=== PATIENT | female | born 1965 | race Caucasian/White ===

== ENCOUNTER 2016-12-07 16:36 | Observation (INO) | payer OTHER ==
[~2016-12-07] VITALS: Ht 154.9 cm; Wt 102.0 kg
[~2016-12-07 16:36] MED LIST: FURO40TA OR; LIQUID IRON PO; [UNRECOGNIZED DRUG - CODE] IV
[2016-12-07 16:45] VITALS: BP 125/58; PULSE 70; RESP 20; O2SAT 99
[2016-12-07] MEDS ORDERED: HYDROmorphone HCL PF 1 MG/ML VIAL IV PUSH ONE ×2 (17:00→20:00)
--- NOTE | 2016-12-07 17:10 | PD ---
HPI Chief Complaint: Fall Time Seen by Provider: 16:52 Travel History International Travel<30 days: No Contact w/Intl Traveler<30days: No Traveled to known affect area: No History of Present Illness HPI 51 year old female presents to ED after slip & fall onto left knee. Patient reports she slipped on wet concrete falling forward onto left knee & left out stretched hand. She denies Head injury. No LOC. Patient is not anticoagulated. She complains of L knee pain, unable to bear weight. Left lateral hand pain. Left anterior rib pain. Denies CP, SOB, Headache, N/V, or visual changes. Patient denies any PMH. No current Home medications. 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) Endocrine: No GERD: No Genitourinary: Yes Hiatal Hernia: Yes Immune Disorder: No Implanted Vascular Access Dvce: Yes (RIGHT SUBCLAVIAN) Kidney Stones: Yes Musculoskeletal: No Neurologic: No Psychiatric: Yes Respiratory: No Immunizations Current: No Renal Failure: No Ulcer: No ?: Not Past Surgical History Abdominal Surgery: Yes (APPENDECTOMY,EXP LAP,UMBILICAL HERNIA REPAIR) Arteriovenous Shunt: No Cardiac Surgery: No Insulin Pump: No Joint Replacement: No Pacemaker: No Thoracic Surgery: No Other Surgery: Yes Social History Alcohol Use: No Tobacco Use: No Substance Use: No Allergies-Medications (Allergen,Severity, Reaction): Coded Allergies: No Known Allergies (Verified , 12/07/16) Reported Meds & Prescriptions Reported Meds & Active Scripts Active Walker with Front Wheels (Device) 1 Mis Mis 1 Ea .ROUTE DIRECTED Hydrocodone-Acetaminophen 5-325 mg Tab 1 Tab PO Q4H PRN Ibuprofen 600 Mg Tab 600 Mg PO Q8HR PRN Review of Systems Except as stated in HPI: all other systems reviewed are Neg Physical Exam Narrative GENERAL: Alert obese white female. Crying out in pain. Exam limited due to patients pain level. SKIN: Warm and dry. HEAD: Normocephalic. atraumatic. EYES: No scleral icterus. No injection or drainage. NECK: Supple, trachea midline. No JVD or lymphadenopathy. CARDIOVASCULAR: Regular rate and rhythm without murmurs, gallops, or rubs. RESPIRATORY: Breath sounds equal bilaterally. No accessory muscle use. Mild tenderness left anterior rib. No crepitus. GASTROINTESTINAL: Abdomen soft, non-tender, nondistended. MUSCULOSKELETAL: Left knee swollen, mildly ecchymotic, No cyanosis. Pulses present. Normal sensation of the Left lower extremity. Left hand tender over 5th metacarpal. BACK: Nontender without obvious deformity. No CVA tenderness. Data Data Last Documented VS Vital Signs Date Time Temp Pulse Resp B/P Pulse Ox O2 Delivery O2 Flow Rate FiO2 12/07/16 22:00 88 18 141/78 12/07/16 18:28 100 12/07/16 17:26 Room Air Orders Chest, Single Ap (12/07/16 ) Hand, Limited (2vws) (12/07/16 ) Knee, Complete (4vws) (12/07/16 ) Hydromorphone Pf Inj (Dilaudid Pf Inj) (12/07/16 17:00) Hydromorphone Pf Inj (Dilaudid Pf Inj) (12/07/16 17:15) Hydromorphone Pf Inj (Dilaudid Pf Inj) (12/07/16 20:00) Ct Knee W/O Contrast (12/07/16 ) Cta Runoff W Iv Contrast W 3d (12/07/16 ) Complete Blood Count With Diff (12/07/16 21:04) Comprehensive Metabolic Panel (12/07/16 21:04) ^ Insert Iv (12/07/16 21:04) Prothrombin Time / Inr (Pt) (12/07/16 21:04) Act Partial Throm Time (Ptt) (12/07/16 21:04) Iohexol 350 Inj (Omnipaque 350 Inj) (12/07/16 21:28) Splint Or Brace Apply/Monitor (12/08/16 00:02) Crutches (12/08/16 00:02) Admit Order (Ed Use Only) (12/08/16 01:10) Labs Laboratory Tests Test 12/07/16 21:20 White Blood Count 10.1 TH/MM3 Red Blood Count 4.41 MIL/MM3 Hemoglobin 11.5 GM/DL Hematocrit 36.0 % Mean Corpuscular Volume 81.5 FL Mean Corpuscular Hemoglobin 26.0 PG Mean Corpuscular Hemoglobin 31.9 % Concent Red Cell Distribution Width 14.8 % Platelet Count 156 TH/MM3 Mean Platelet Volume 8.7 FL Neutrophils (%) (Auto) 88.2 % Lymphocytes (%) (Auto) 7.0 % Monocytes (%) (Auto) 4.2 % Eosinophils (%) (Auto) 0.3 % Basophils (%) (Auto) 0.3 % Neutrophils # (Auto) 8.9 TH/MM3 Lymphocytes # (Auto) 0.7 TH/MM3 Monocytes # (Auto) 0.4 TH/MM3 Eosinophils # (Auto) 0.0 TH/MM3 Basophils # (Auto) 0.0 TH/MM3 CBC Comment DIFF FINAL Differential Comment Prothrombin Time 10.8 SEC Prothromb Time International 1.0 RATIO Ratio Activated Partial 24.5 SEC Thromboplast Time Sodium Level 139 MEQ/L Potassium Level 4.0 MEQ/L Chloride Level 106 MEQ/L Carbon Dioxide Level 26.1 MEQ/L Anion Gap 7 MEQ/L Blood Urea Nitrogen 11 MG/DL Creatinine 0.72 MG/DL Estimat Glomerular Filtration 85 ML/MIN Rate Random Glucose 113 MG/DL Calcium Level 7.5 MG/DL Total Bilirubin 0.5 MG/DL Aspartate Amino Transf 56 U/L (AST/SGOT) Alanine Aminotransferase 48 U/L (ALT/SGPT) Alkaline Phosphatase 60 U/L Total Protein 5.0 GM/DL Albumin 2.4 GM/DL [facility] Medical Decision Making Medical Screen Exam Complete: Yes Emergency Medical Condition: Yes Medical Record Reviewed: Yes Differential Diagnosis Patellar fx vs patellar dislocation vs contusion vs hand fx, vs rib fx Narrative Course 51 year old female who sustained a fall from a standing position. No head Trauma. Left knee is concerning for FX. Possible rib FX. Possible hand FX. Xray of knee, hand, chest pending. Physician Communication Physician Communication CT/CTA of left lower extremity paending. Leslie Del Angel NP will follow patient at this time. Scripts Walker with Front Wheels 1 Mis Mis #1 EA .ROUTE DIRECTED Ref 0 Prov:Diana Esparza PA-C 12/08/16 Hydrocodone-Acetaminophen 5-325 mg Tab1 Tab PO Q4H PRN (PAIN SCALE 3 TO 5) #18 TAB Prov:Barrie Hook MD 12/08/16 Ibuprofen 600 Mg [id number] Mg PO Q8HR PRN (PAIN) #30 TAB Ref 0 Prov:Leslie Del Angel 12/08/16 Mirela Pritchard December 07, 2016 17:10 Mirela Pritchard [facility] December 07, 2016 17:10
[2016-12-07] MEDS ORDERED: HYDROmorphone HCL PF 1 MG/ML VIAL IM ONE (17:15)
[2016-12-07 18:28] VITALS: BP 176/78; PULSE 98; RESP 18; O2SAT 100
--- NOTE | 2016-12-07 20:27 | RADRPT ---
EXAM DATE/TIME: 12/07/2016 17:46 [facility] COMPARISON: No previous studies available for comparison. INDICATIONS : Pain from fall on porch. MEDICAL HISTORY : None. SURGICAL HISTORY : None. ENCOUNTER: Initial ACUITY: 1 day PAIN SCORE: 10/10 LOCATION: Left knee. FINDINGS: Diffuse osteopenia of the bones of the left knee is noted. There is moderate joint space narrowing i nvolving the medial femoral tibial joint as well as marginal osteophytosis. Moderate joint space susan rowing is also noted involving the patellofemoral joint with marginal osteophytosis superiorly. No a cute fracture or dislocation is noted. CONCLUSION: 1. Diffuse osteopenia of the bones of the left knee. 2. Moderate joint space narrowing and marginal osteophytosis involving the patellofemoral and medial femoral tibial joints. 3. No acute fracture or dislocation. Abraham Doll MD on December 07, 2016 at 20:17 Board Certified Radiologist. This report was verified electronically.
--- NOTE | 2016-12-07 20:28 | RADRPT ---
EXAM DATE/TIME: 12/07/2016 17:53 [facility] COMPARISON: No previous studies available for comparison. INDICATIONS : Pain from fall on porch. MEDICAL HISTORY : None. SURGICAL HISTORY : None. ENCOUNTER: Initial ACUITY: 1 day PAIN SCORE: 3/10 LOCATION: Left hand. FINDINGS: Diffuse osteopenia of the left hand, wrist and distal forearm is noted. There is no acute fracture o r dislocation of the left hand or wrist. CONCLUSION: 1. No acute fracture or dislocation. 2. Diffuse osteopenia involving the left hand, wrist and distal forearm. Abraham Doll MD on December 07, 2016 at 20:19 Board Certified Radiologist. This report was verified electronically.
--- NOTE | 2016-12-07 20:30 | RADRPT ---
EXAM DATE/TIME: 12/07/2016 17:59 [facility] COMPARISON: No previous studies available for comparison. INDICATIONS : Pain from fall off porch. MEDICAL HISTORY : None. SURGICAL HISTORY : None. ENCOUNTER: Initial ACUITY: 1 day PAIN SCORE: 3/10 LOCATION: Bilateral chest FINDINGS: A right internal jugular central line has its tip in the superior vena cava near the junction with th e right atrium. There is no pneumothorax. The heart and mediastinal structures are normal. The pul monary vascular pattern is normal. The lungs are clear. Arthritic changes are noted involving both shoulders. CONCLUSION: No acute cardiopulmonary disease. Abraham Doll MD on December 07, 2016 at 20:20 Board Certified Radiologist. This report was verified electronically.
--- NOTE | 2016-12-07 21:25 | PD ---
Data Data Last Documented VS Vital Signs Date Time Temp Pulse Resp B/P Pulse Ox O2 Delivery O2 Flow Rate FiO2 12/07/16 18:29 18 12/07/16 18:28 98 176/78 100 12/07/16 17:26 Room Air Orders Chest, Single Ap (12/07/16 ) Hand, Limited (2vws) (12/07/16 ) Knee, Complete (4vws) (12/07/16 ) Hydromorphone Pf Inj (Dilaudid Pf Inj) (12/07/16 17:00) Hydromorphone Pf Inj (Dilaudid Pf Inj) (12/07/16 17:15) Hydromorphone Pf Inj (Dilaudid Pf Inj) (12/07/16 20:00) Ct Knee W/O Contrast (12/07/16 ) Cta Runoff W Iv Contrast W 3d (12/07/16 ) Complete Blood Count With Diff (12/07/16 21:04) Comprehensive Metabolic Panel (12/07/16 21:04) ^ Insert Iv (12/07/16 21:04) Prothrombin Time / Inr (Pt) (12/07/16 21:04) Act Partial Throm Time (Ptt) (12/07/16 21:04) MDM Supervised Visit with JOSELIN: Yes Narrative Course The history, exam, and medical decision-making in the associated midlevel provider note were completed with my assistance. I reviewed and agree with the findings presented. I attest that I had a [id number] encounter with the patient on the same day, and personally performed and documented my assessment and findings in the medical record. *My assessment and Findings: This is a 51-year-old female who presents to the emergency department having had a fall onto her left knee. She is reporting severe pain in the left knee. Her exam is impressive with an effusion and ecchymoses over the left knee with severe pain with range of motion. Her exam is somewhat disproportionate to her mechanism of injury but she is obese. X- rays were reassuring but we will perform a CT and a CTA to rule out vascular injury. Hanna Cervantes MD December 07, 2016 21:25
[2016-12-07] MEDS ORDERED: IOHEXOL 350 MG/ML 10 ML VIAL (for RAD DIAG) IV ONE (21:28)
--- NOTE | 2016-12-07 21:33 | RADRPT ---
EXAM DATE/TIME: 12/07/2016 20:54 [facility] COMPARISON: No previous studies available for comparison. INDICATIONS : Trauma, fall. Left knee pain. RADIATION DOSE: 47.11 CTDIvol (mGy) MEDICAL HISTORY : Renal calculi. Hernia. SURGICAL HISTORY : Appendectomy. Cholecystectomy. ENCOUNTER: Initial ACUITY: 1 day PAIN SCALE: 10/10 LOCATION: Left knee TECHNIQUE: Volumetric scanning of the knee was performed. Using automated exposure control and adjustment of th e mA and/or kV according to patient size, radiation dose was kept as low as reasonably achievable to obtain optimal diagnostic quality images. FINDINGS: Severe osteoporosis is noted involving the bones of the left knee. There is no acute fracture or dis location. No knee joint effusion is noted. Moderate osteoarthritis is noted involving the patellofe moral and femoral tibial joints. CONCLUSION: 1. Severe osteoporosis involving the bones of the left knee. 2. Moderate osteoarthritis involving the patellofemoral and femoral tibial joints. 3. No acute fracture, dislocation or knee joint effusion. Abraham Doll MD on December 07, 2016 at 21:27 Board Certified Radiologist. This report was verified electronically.
[2016-12-07 21:38] LABS: AUTOMATED NEUTROPHIL # 8.9 TH/MM3 (1.8-7.7); BASOPHIL % 0.3 % (0.0-2.0); EOSINOPHIL % 0.3 % (0.0-4.0); HEMO FLAGS DIFF FINAL; LYMPHOCYTE # 0.7 TH/MM3 (1.0-4.8); MEAN CELL VOLUME 81.5 FL (80.0-100.0); MEAN CORPUSCULAR HGB CONC 31.9 % (32.0-36.0); MONO % 4.2 % (0.0-8.0); NEUT % 88.2 % (16.0-70.0); PLATELET COUNT 156 TH/MM3 (150-450); RED BLOOD COUNT 4.41 MIL/MM3 (4.00-5.30); RED CELL DISTRIBUTION WIDTH 14.8 % (11.6-17.2); WHITE BLOOD COUNT 10.1 TH/MM3 (4.0-11.0)
[2016-12-07 21:51] LABS: APTT (PATIENT) 24.5 SEC (24.3-30.1); PROTHROMBIN TIME - PATIENT 10.8 SEC (9.8-11.6)
[2016-12-07 21:56] LABS: ALKALINE PHOSPHATASE 60 U/L (45-117); TOTAL BILIRUBIN ADULT 0.5 MG/DL (0.2-1.0)
[2016-12-07 22:00] VITALS: BP 141/78; PULSE 88; RESP 18
[2016-12-07 22:17] LABS: ALT (GPT) 48 U/L (10-53); ANION GAP 7 MEQ/L (5-15); AST (GOT) 56 U/L (15-37); BICARBONATE 26.1 MEQ/L (21.0-32.0); BLOOD UREA NITROGEN 11 MG/DL (7-18); CHLORIDE 106 MEQ/L (98-107); GLOMERULAR FILTRATION RATE 85 ML/MIN (>89); SODIUM (NA) 139 MEQ/L (136-145)
--- NOTE | 2016-12-07 23:56 | RADRPT ---
EXAM DATE/TIME: 12/07/2016 21:08 [facility] COMPARISON: CT KNEE LEFT W/O CONTRAST, December 07, 2016, 20:54. INDICATIONS : Left knee injury. Evaluate for arterial occulsion. IV CONTRAST: 95 cc Omnipaque 350 (iohexol) IV RADIATION DOSE: 33.53 CTDIvol (mGy) MEDICAL HISTORY : Renal calculi. Hernia. SURGICAL HISTORY : Appendectomy. Cholecystectomy. ENCOUNTER: Initial ACUITY: 1 day PAIN SCALE: 10/10 LOCATION: Left knee TECHNIQUE: Volumetric scanning was performed using a multi-row detector CT scanner. The data was post processed with a variety of visualization algorithms including full volume maximum intensity projection, multi -planar sliding thin slab reformation, curved planar reformation, and surface rendering techniques. Using automated exposure control and adjustment of the mA and/or kV according to patient size, radiat ion dose was kept as low as reasonably achievable to obtain optimal diagnostic quality images. FINDINGS: ABDOMINAL AORTA: The lumen is smooth without significant narrowing or aneurysmal dilation. The proximal celiac and dillon perior mesenteric arteries are patent. There is some questionable narrowing at the origin of the amari ac artery. There is no evidence of narrowing involving the SMA.. There are bilateral renal arteries without gross abnormality. There appears to be a single right renal artery. There appear to be 3 left renal arteries which are patent. There is a 1.4 cm nonobstructing stone in the lower pole left kidne y. The left kidney is mildly atrophic compared to the right. BIFURCATION: Normal. RIGHT PELVIS: The right common iliac, internal iliac, and external iliac vessels are patent without luminal irregul arity. LEFT PELVIS: The left common iliac, internal iliac, and external iliac vessels are patent and without luminal irre gularity. RIGHT THIGH: The superficial femoral and profunda vessels are patent without luminal irregularity. LEFT THIGH: The superficial femoral and profunda vessels are patent without luminal irregularity. RIGHT KNEE: The distal femoral and popliteal arteries are patent without luminal irregularity. LEFT KNEE: The distal femoral and popliteal arteries are patent without luminal irregularity. RIGHT LEG: The trifurcation is intact. LEFT LEG: The trifurcation is intact. There is a 2.6 cm left ovarian cyst. Evidence of previous abdominal surgery with a mesh graft against the anterior abdominal wall. 1.4 cm nonobstructing left renal stone. Diffuse soft tissue density in the subcutaneous soft tissues anterior to the left knee suggestive of a prominent subcutaneous hematoma given patient's recent history of trauma CONCLUSION: 1. The arterial system is within normal limits for patient's age. Specifically there is no evidence o f any abnormality involving the left popliteal artery. 2. Prominent soft tissue hematoma involving the subcutaneous soft tissues anterior to the left knee j oint. 3. 1.4 cm not affecting left renal stone. 4. 2.6 cm left ovarian cyst. Fernando Guy MD on December 07, 2016 at 23:44 Board Certified Radiologist. This report was verified electronically.
[2016-12-08] MEDS ORDERED: HYDR-3533 PO (00:04)
[2016-12-08] MEDS ORDERED: IBUP-232 PO (00:32)
--- NOTE | 2016-12-08 00:32 | PD ---
Physical Exam Time Seen by Provider: 00:29 Narrative Patient is signed out to me with CTA pending of the left lower extremity. Please refer to previous providers documentation for details surrounding the patient's current visit. Data Data Last Documented VS Vital Signs Date Time Temp Pulse Resp B/P Pulse Ox O2 Delivery O2 Flow Rate FiO2 12/07/16 22:00 88 18 141/78 12/07/16 18:28 100 12/07/16 17:26 Room Air Orders Chest, Single Ap (12/07/16 ) Hand, Limited (2vws) (12/07/16 ) Knee, Complete (4vws) (12/07/16 ) Hydromorphone Pf Inj (Dilaudid Pf Inj) (12/07/16 17:00) Hydromorphone Pf Inj (Dilaudid Pf Inj) (12/07/16 17:15) Hydromorphone Pf Inj (Dilaudid Pf Inj) (12/07/16 20:00) Ct Knee W/O Contrast (12/07/16 ) Cta Runoff W Iv Contrast W 3d (12/07/16 ) Complete Blood Count With Diff (12/07/16 21:04) Comprehensive Metabolic Panel (12/07/16 21:04) ^ Insert Iv (12/07/16 21:04) Prothrombin Time / Inr (Pt) (12/07/16 21:04) Act Partial Throm Time (Ptt) (12/07/16 21:04) Iohexol 350 Inj (Omnipaque 350 Inj) (12/07/16 21:28) Splint Or Brace Apply/Monitor (12/08/16 00:02) Crutches (12/08/16 00:02) Admit Order (Ed Use Only) (12/08/16 01:10) Labs Laboratory Tests Test 12/07/16 21:20 White Blood Count 10.1 TH/MM3 Red Blood Count 4.41 MIL/MM3 Hemoglobin 11.5 GM/DL Hematocrit 36.0 % Mean Corpuscular Volume 81.5 FL Mean Corpuscular Hemoglobin 26.0 PG Mean Corpuscular Hemoglobin 31.9 % Concent Red Cell Distribution Width 14.8 % Platelet Count 156 TH/MM3 Mean Platelet Volume 8.7 FL Neutrophils (%) (Auto) 88.2 % Lymphocytes (%) (Auto) 7.0 % Monocytes (%) (Auto) 4.2 % Eosinophils (%) (Auto) 0.3 % Basophils (%) (Auto) 0.3 % Neutrophils # (Auto) 8.9 TH/MM3 Lymphocytes # (Auto) 0.7 TH/MM3 Monocytes # (Auto) 0.4 TH/MM3 Eosinophils # (Auto) 0.0 TH/MM3 Basophils # (Auto) 0.0 TH/MM3 CBC Comment DIFF FINAL Differential Comment Prothrombin Time 10.8 SEC Prothromb Time International 1.0 RATIO Ratio Activated Partial 24.5 SEC Thromboplast Time Sodium Level 139 MEQ/L Potassium Level 4.0 MEQ/L Chloride Level 106 MEQ/L Carbon Dioxide Level 26.1 MEQ/L Anion Gap 7 MEQ/L Blood Urea Nitrogen 11 MG/DL Creatinine 0.72 MG/DL Estimat Glomerular Filtration 85 ML/MIN Rate Random Glucose 113 MG/DL Calcium Level 7.5 MG/DL Total Bilirubin 0.5 MG/DL Aspartate Amino Transf 56 U/L (AST/SGOT) Alanine Aminotransferase 48 U/L (ALT/SGPT) Alkaline Phosphatase 60 U/L Total Protein 5.0 GM/DL Albumin 2.4 GM/DL [facility] Medical Record Reviewed: Yes Supervised Visit with JOSELIN: No Narrative Course CTA results prominent subcutaneous hematoma of the left knee. It also shows that vascular system is intact. I discussed the results of the patient. She is placed in a cam his knee immobilizer. We have attempted to ambulate her using crutches however the patient is unable to do this. She states that she is extremely weak in her upper extremities and she will not be of the utilize the crutches at home. She does have an autistic son at home who is 16 and she is concerned may not be able to help her either. She does have a sister who lives in [place] but is fearful she will be at home alone and unable to ambulate. I have discussed the patient with case management. We have obtained a walker. We attempted to walk the patient utilizing the walker however the patient was unable to do this. She was very tearful and frustrated with the entire situation. I discussed the patient with Dr. Lopez. Patient will be admitted observation for inability to ambulate and further evaluation of this and possible need for additional assistance. Diagnosis Primary Impression: Traumatic hematoma of left knee Qualified Code: S80.02XA - Traumatic hematoma of left knee, initial encounter Referrals: Orthopaedic Surgeon Primary Care Physician Patient Instructions: General Instructions, Hematoma (ED) Additional Instruction: Knee immobilizer for comfort Ice and elevate to reduce pain and swelling Follow-up with an fundraising specialist Return immediately with any acute worsening of symptoms Med/Other Pt SpecificInfo: Prescription(s) given Scripts Ibuprofen 600 Mg [id number] Mg PO Q8HR PRN (PAIN) #30 TAB Ref 0 Prov:Leslie Del Angel 12/08/16 Hydrocodone-Acetaminophen (Lortab)5-325 Mg Tab1 Tab PO Q6H PRN (PAIN GREATER THAN 5) #15 TAB Ref 0 Prov:Summer Bowens MD 12/08/16 Disposition: 01 DISCHARGE HOME Condition: Stable Leslie Del Angel December 08, 2016 00:32
[2016-12-08] MEDS ORDERED: BISACODYL 10 MG SUPP RECTAL PRN (03:00)
[2016-12-08] MEDS ORDERED: ONDANSETRON HCL 4 MG/2 ML VIAL IVP PRN (03:00)
[2016-12-08] MEDS ORDERED: ACETAMINOPHEN 325 MG TAB PO PRN (03:00)
[2016-12-08] MEDS ORDERED: SODIUM CHLORIDE 0.9% FLUSH 10 ML FLUSH IV FLUSH PRN (03:00)
[2016-12-08] MEDS ORDERED: MORPHINE SULFATE 4 MG/ML INJ IV PRN (03:00)
--- NOTE | 2016-12-08 03:14 | HHI.HP ---
[facility] Admission Diagnosis L Knee hematoma; inability to ambulate Diagnoses: (1) Traumatic hematoma of left knee (2) Inability to ambulate due to knee Diagnosis: Principal (3) Gait instability Diagnosis: Principal (4) Dehydration Diagnosis: Principal (5) HTN (hypertension) Diagnosis: Principal Travel History International Travel<30 Days: No Contact w/Intl Traveler <30 Da: No Traveled to Known Affected Are: No History of Present Illness This is a 51-year-old female with a PMH of Anxiety who presented to the ER with complaints of left knee pain after a slip and fall. Patient apparently slipped on wet concrete and fell onto left knee and left hand. No LOC or head injury reported. Patient unable to bare weight without significant pain. On arrival, BP 125/58, HR 70, O2 sat 99% on RA, Afebrile. CBC unremarkable. Chemistry essentially unremarkable. On exam, pt found to have large left knee hematoma. Not on anticoagulation. Knee X-ray with diffuse osteopenia of left knee, moderate joint space narrowing, no acute fracture. Hand X-ray with no acute fracture or dislocation. CXR with no acute findings. CT LE was severe osteoporosis involving left knee, moderate osteoarthritis, no acute fracture. CTA w/ Runoff, no evidence of abnormality involving left popliteal artery, prominent soft tissue hematoma involving the subcutaneous soft tissues of left knee joint. Pt was to be discharged from ER, however reports inability to ambulate. Provided w/ walker by Case Management, persistent complaints of inability to ambulate. Plan to admit for PT eval. Review of Systems Except as stated in HPI: all other systems reviewed are Neg ROS: 14 point review of systems otherwise negative. Past Family Social History Past Medical History PMH: Anxiety Past Surgical History PAST SURGICAL HISTORY: Appendectomy, Exploratory Laparotomy, Umbilical Hernia Repair Allergies: Coded Allergies: No Known Allergies (Verified , 12/07/16) Family History PAST FAMILY HISTORY: Reviewed. No h/o DM or CAD Social History PAST SOCIAL HISTORY: Negative for alcohol, tobacco or drugs. Physical Exam Vital Signs Vital Signs Date Time Temp Pulse Resp B/P Pulse Ox O2 Delivery O2 Flow Rate FiO2 12/07/16 22:00 88 18 141/78 12/07/16 18:29 18 12/07/16 18:28 98 18 176/78 100 12/07/16 17:26 Room Air 12/07/16 16:45 70 20 125/58 99 Physical Exam PE: GENERAL: Middle-aged female in no acute distress. HEENT: PERRLA, EOMI. No scleral icterus or conjunctival pallor. No lid lag or facial droop. CARDIOVASCULAR: Regular rate and rhythm. No obvious murmurs to auscultation. No chest tenderness to palpation. RESPIRATORY: No obvious rhonchi or wheezing. Clear to auscultation. Breath sounds equal bilaterally. GASTROINTESTINAL: Abdomen soft, non-tender, nondistended. BS normal. MUSCULOSKELETAL: Extremities without clubbing, cyanosis, or edema. No obvious deformities. Left knee swelling, +ecchymosis. Pulses intact. NEUROLOGICAL: Awake, alert and oriented x4. No focal neurologic deficits. Moving both upper and lower extremities spontaneously. Laboratory Laboratory Tests Test 12/07/16 21:20 White Blood Count 10.1 Red Blood Count 4.41 Hemoglobin 11.5 Hematocrit 36.0 Mean Corpuscular Volume 81.5 Mean Corpuscular Hemoglobin 26.0 Mean Corpuscular Hemoglobin 31.9 Concent Red Cell Distribution Width 14.8 Platelet Count 156 Mean Platelet Volume 8.7 Neutrophils (%) (Auto) 88.2 Lymphocytes (%) (Auto) 7.0 Monocytes (%) (Auto) 4.2 Eosinophils (%) (Auto) 0.3 Basophils (%) (Auto) 0.3 Neutrophils # (Auto) 8.9 Lymphocytes # (Auto) 0.7 Monocytes # (Auto) 0.4 Eosinophils # (Auto) 0.0 Basophils # (Auto) 0.0 CBC Comment DIFF FINAL Differential Comment Prothrombin Time 10.8 Prothromb Time International 1.0 Ratio Activated Partial 24.5 Thromboplast Time Sodium Level 139 Potassium Level 4.0 Chloride Level 106 Carbon Dioxide Level 26.1 Anion Gap 7 Blood Urea Nitrogen 11 Creatinine 0.72 Estimat Glomerular Filtration 85 Rate Random Glucose 113 Calcium Level 7.5 Total Bilirubin 0.5 Aspartate Amino Transf 56 (AST/SGOT) Alanine Aminotransferase 48 (ALT/SGPT) Alkaline Phosphatase 60 Total Protein 5.0 Albumin 2.4 Result Diagram: 12/07/16211912/07/162119 Assessment and Plan Problem List: (1) Traumatic hematoma of left knee ICD Code: S80.02XA Status: Acute (2) Inability to ambulate due to knee ICD Code: R26.2 Status: Acute (3) Gait instability ICD Code: R26.81 Status: Acute (4) HTN (hypertension) ICD Code: I10 Status: Acute (5) Dehydration ICD Code: E86.0 Status: Acute Assessment and Plan A/P: 1. Traumatic Hematoma to Left Knee: s/p slip and fall, no head trauma or LOC, Knee X-ray w/ no acute fracture, CT LE with severe osteoporosis involving left knee, no acute fracture. CTA w/ Runoff w/ no evidence of abnormality involving left popliteal artery, prominent soft tissue hematoma involving subcutaneous soft tissues left knee joint, images reviewed by me. Not on anticoagulation. 2. Inability to Ambulate: pt to be d/c'd from ER, however pt unable to ambulate due to c/o pain. Walker provided by Case Management, however persistent inability to ambulate, suspect partially related to obesity and poor effort. PT for eval/tx. Case Management to assist as needed. 3. Gait Instability: secondary to above, attempts to ambulate unsuccessful. PT as above. 4. Dehydration: GFR 85, BUN/Creatinine normal. IVF for hydration. Repeat labs in am. 5. HTN: BP 140-170's while in ER, likely compounded by pain. No h/o HTN. Monitor BP. 6. DVT Prophylaxis: Pharmacologic contraindication in light of hematoma. Mechanical contraindication in light of lower extremity injury. 7. Social work for d/c planning as needed. 8. Case discussed w/ ER physician at length. Problem Qualifiers (1) Traumatic hematoma of left knee: Qualified Code: S80.02XA - Traumatic hematoma of left knee, initial encounter Rosemary Mclaughlin MD December 08, 2016 03:14
[2016-12-08] MEDS: SODIUM CHLOR 0.9% 1000 ML INJ 1,000 ML IV SCH ×2 (04:04→12:46)
[2016-12-08 04:40] VITALS: BP 111/57; PULSE 68; RESP 20; TEMP 98.3; O2SAT 97
[2016-12-08] MEDS: ACETAMINOPHEN/HYDROcodone 325 MG/5 MG TAB PO PRN ×2 (05:56→12:45)
[2016-12-08 07:53] VITALS: BP 115/57; PULSE 60; RESP 18; TEMP 97; O2SAT 97
[2016-12-08] MEDS ORDERED: SODIUM CHLORIDE 0.9% FLUSH 10 ML FLUSH IV FLUSH SCH (09:00)
[2016-12-08 11:36] VITALS: BP 125/59; PULSE 63; RESP 18; TEMP 97; O2SAT 65
[2016-12-08 16:07] VITALS: BP 128/56; PULSE 63; RESP 18; TEMP 98.2; O2SAT 96
[2016-12-08] MEDS ORDERED: HYDR-3516 PO (16:25)
--- NOTE | 2016-12-08 16:37 | HHI.PR ---
Subjective Remarks Follow-up for left knee hematoma, inability to ambulate. The patient reports feeling better today. Her left knee pain and swelling is improving. She has been able to ambulate around her room without much difficulty. She ambulated the hallway with physical therapy. She does also complain of some medial left ankle pain with ambulation, requests an xray. Otherwise, the patient would like to go home, she does not want to stay another night in the hospital. Her pain is well controlled with Randall. Objective Vitals Vital Signs Date Time Temp Pulse Resp B/P Pulse Ox O2 Delivery O2 Flow Rate FiO2 12/08/16 16:07 98.2 63 18 128/56 96 12/08/16 11:36 97.0 63 18 125/59 65 12/08/16 07:53 97.0 60 18 115/57 97 12/08/16 04:40 98.3 68 20 111/57 97 12/07/16 22:00 88 18 141/78 12/07/16 18:29 18 12/07/16 18:28 98 18 176/78 100 12/07/16 17:26 Room Air 12/07/16 16:45 70 20 125/58 99 I/O 12/07/16 12/07/16 12/07/16 12/08/16 12/08/16 12/08/16 07:00 15:00 23:00 07:00 15:00 23:00 Intake Total 346 ml Output Total 0 ml Balance 346 ml Intake Oral 120 ml IV Total 226 ml Output Urine Total 0 ml Result Diagram: 12/07/16211912/07/162119 Imaging Last Impressions Lower Extremity CT 12/07/16 0000 Signed Impressions: Service Date/Time: Wednesday, December 07, 2016 20:54 - CONCLUSION: 1. Severe osteoporosis involving the bones of the left knee. 2. Moderate osteoarthritis involving the patellofemoral and femoral tibial joints. 3. No acute fracture, dislocation or knee joint effusion. Abraham Doll MD Knee X-Ray 12/07/16 0000 Signed Impressions: Service Date/Time: Wednesday, December 07, 2016 17:46 - CONCLUSION: 1. Diffuse osteopenia of the bones of the left knee. 2. Moderate joint space narrowing and marginal osteophytosis involving the patellofemoral and medial femoral tibial joints. 3. No acute fracture or dislocation. Abraham Doll MD Hand X-Ray 12/07/16 0000 Signed Impressions: Service Date/Time: Wednesday, December 07, 2016 17:53 - CONCLUSION: 1. No acute fracture or dislocation. 2. Diffuse osteopenia involving the left hand, wrist and distal forearm. Abraham Doll MD Chest X-Ray 12/07/16 0000 Signed Impressions: Service Date/Time: Wednesday, December 07, 2016 17:59 - CONCLUSION: No acute cardiopulmonary disease. Abraham Doll MD Aorta w/Runoff CTA 12/07/16 0000 Signed Impressions: Service Date/Time: Wednesday, December 07, 2016 21:08 - CONCLUSION: 1. The arterial system is within normal limits for patient's age. Specifically there is no evidence of any abnormality involving the left popliteal artery. 2. Prominent soft tissue hematoma involving the subcutaneous soft tissues anterior to the left knee joint. 3. 1.4 cm not affecting left renal stone. 4. 2.6 cm left ovarian cyst. Fernando Guy MD Objective Remarks GENERAL: Well-nourished, well-developed obese female patient in NAD. Ambulating her room. SKIN: Warm and dry. No rash. HEENT: Normocephalic. Atraumatic.Pupils equal and round. Mucous membranes pink and moist. NECK: Supple. Trachea midline. CARDIOVASCULAR: Regular rate and rhythm. S1, S2 noted. No murmur appreciated. RESPIRATORY: No accessory muscle use. Clear to auscultation. Breath sounds equal bilaterally. GASTROINTESTINAL: Abdomen soft, non-tender, nondistended. Normoactive bowel sounds x4. MUSCULOSKELETAL: No obvious deformities. Diffuse left anterior knee hematoma and ecchymosis with decreased ROM secondary to pain. Left ankle nontender to palpation however does have ankle pain with plantar flexion against resistance. NEUROLOGICAL: Awake and alert. No obvious cranial nerve deficits. Motor grossly within normal limits. 5/5 muscle strength in bilateral upper and lower extremities. Normal speech. PSYCHIATRIC: Appropriate mood and affect; insight and judgment normal. Procedures None. Medications and IVs Current Medications Medications (Trade) Dose Ordered Sig/Andres Route Start Time Stop Time Status Last Admin (NS Flush) 2 ml UNSCH PRN IV FLUSH 12/08/16 03:00 (NS Flush) 2 ml BID IV FLUSH 12/08/16 09:00 (Zofran Inj) 4 mg Q6H PRN IVP 12/08/16 03:00 (Dulcolax Supp) 10 mg DAILY PRN RECTAL 12/08/16 03:00 (Tylenol) 650 mg Q6H PRN PO 12/08/16 03:00 (Randall 5-325 Mg) 1 tab Q4H PRN PO 12/08/16 03:00 12/08/16 12:45 Morphine Sulfate 2 mg 2 mg Q3H PRN IV 12/08/16 03:00 (NS 1000 ml Inj) 1,000 ml @ 100 mls/hr Q10H IV 12/08/16 03:00 12/08/16 12:46 A/P Problem List: (1) Traumatic hematoma of left knee ICD Code: S80.02XA Status: Acute (2) Inability to ambulate due to knee ICD Code: R26.2 Status: Acute (3) Gait instability ICD Code: R26.81 Status: Acute (4) HTN (hypertension) ICD Code: I10 Status: Acute (5) Dehydration ICD Code: E86.0 Status: Acute Assessment and Plan 51-year-old female with a PMH of Anxiety who presented to the ER with complaints of left knee pain after a slip and fall. Patient apparently slipped on wet concrete and fell onto left knee and left hand. Patient unable to bare weight without significant pain. Traumatic Hematoma to Left Knee: s/p slip and fall, no head trauma or LOC, Knee X-ray w/ no acute fracture, CT LE with severe osteoporosis involving left knee, no acute fracture. CTA w/ Runoff w/ no evidence of abnormality involving left popliteal artery, prominent soft tissue hematoma involving subcutaneous soft tissues left knee joint, images reviewed by me. Not on anticoagulation. Continue Ice, Elevation, Knee Immobilizer. Randall prn pain. PT eval, recommends HHC or no PT, and walker. Patient's sister has a walker at home she plans to use. Patient requesting to be discharged. Inability to Ambulate: pt to be d/c'd from ER, however pt unable to ambulate due to c/o pain. Walker provided by Case Management, however persistent inability to ambulate, suspect partially related to obesity and poor effort. PT eval as above. Case Management assisting with d/c plans. Left Ankle Pain: suspect sprain secondary to fall. Check left ankle xrays. Gait Instability: secondary to above, attempts to ambulate unsuccessful. PT as above. Patient now able to ambulate independently with walker. Dehydration: GFR 85, BUN/Creatinine normal. Given IVF for hydration. HTN: BP 140-170's while in ER, likely compounded by pain. No h/o HTN. Monitor BP, much improved. DVT Prophylaxis: Pharmacologic contraindication in light of hematoma. Mechanical contraindication in light of lower extremity injury. Discharge Planning Left ankle xrays unremarkable. Will discharge home. Discussed with Dr. Hook. Discharge patient to home with [facility] Condition on discharge: Improved Regular Diet as tolerated Ad Eve activity Rx written: Randall 5/325mg q4h prn pain #18 Follow-up with primary care physician at the [facility] within 1 week Problem Qualifiers (1) Traumatic hematoma of left knee: Qualified Code: S80.02XA - Traumatic hematoma of left knee, initial encounter Diana Esparza PA-C December 08, 2016 4:37 pm
--- NOTE | 2016-12-08 16:37 | HHI.FF ---
Face to Face Verification Diagnosis: (1) Traumatic hematoma of left knee (2) Inability to ambulate due to knee (3) Gait instability (4) HTN (hypertension) (5) Dehydration Physical Therapy Order: Evaluate and Treat, Improve ambulation, Strength and gait training I have seen patient Luz Mendez on 12/08/16. My clinical findings support the need for the requested home health care services because: Ltd mobility - disease progression High risk of falls I certify that my clinical findings support that this patient is homebound because: Unsteady gait/balance Unsafe to leave home unassisted Diana Esparza PA-C December 08, 2016 4:37 pm
--- NOTE | 2016-12-08 16:49 | RADRPT ---
EXAM DATE/TIME: 12/08/2016 16:26 [place] COMPARISON: No previous studies available for comparison. INDICATIONS : Pain from fall off of porch. MEDICAL HISTORY : None. SURGICAL HISTORY : None. ENCOUNTER: Initial ACUITY: 2 days PAIN SCORE: 4/10 LOCATION: Left ankle. FINDINGS: Generalized soft tissue swelling is evident with degenerative changes about the ankle. Fracture is not appreciated. CONCLUSION: Generalized soft tissue swelling, negative for fracture followup in 7-10 day's is suggested the patie nt remains symptomatic. Cole Sierra MD FACR on December 08, 2016 at 16:46 Board Certified Radiologist. This report was verified electronically.
--- NOTE | 2016-12-08 17:53 | HHI.DCPOC ---
Discharge Care Plan Diagnosis: (1) Traumatic hematoma of left knee (2) Inability to ambulate due to knee (3) Gait instability (4) HTN (hypertension) (5) Dehydration Goals to Promote Your Health * To prevent worsening of your condition and complications * To maintain your health at the optimal level Directions to Meet Your Goals Take your medications as prescribed Follow your dietary instruction Follow activity as directed Keep your appointments as scheduled Take your immunizations and boosters as scheduled If your symptoms worsen call your PCP, if no PCP go to Urgent Care Center or Emergency Room Smoking is Dangerous to Your Health. Avoid second hand smoke Call the 24-hour hour crisis hotline for domestic abuse at Diana Esparza PA-C December 08, 2016 5:53 pm
[2016-12-08] MEDS ORDERED: WALKER WHEELS/F1 MIS (18:37)
== END 2016-12-08 19:27 | disposition home or self-care (01) ==
LOC: NEPD 16:36 → NEDA 12-08 01:11 → NEPGCP 12-08 04:11
PROVIDERS: ADMIT Internal Medicine; ATTEND Internal Medicine
DX: S80.02XA Contusion of left knee, initial encounter (principal); R26.9 Unspecified abnormalities of gait and mobility; E86.0 Dehydration; I10 Essential (primary) hypertension; M17.12 Unilateral primary osteoarthritis, left knee; R26.2 Difficulty in walking, not elsewhere classified; H91.92 Unspecified hearing loss, left ear; W01.0XXA Fall on same level from slipping, tripping and stumbling without subsequent striking against object, initial encounter; F41.9 Anxiety disorder, unspecified; Z87.442 Personal history of urinary calculi; E66.9 Obesity, unspecified; Z68.41 Body mass index [BMI] 40.0-44.9, adult
CPT/HCPCS: 71010; 73120; 73564; 73610; 73700; 75635; 80053; 85025; 85610; 85730; 96372; 96374; 97162; 99285; E0113; G0378; G8987; G8988; J1170; J2405; J7030; L1830; Q9967